=== PATIENT | male | born 1985 | race African-American/Black ===

== ENCOUNTER 2022-03-18 18:50 | Emergency (ER) | payer BC ==
[~2022-03-18] VITALS: Ht 188 cm; Wt 81.0 kg
[2022-03-18 19:43] VITALS: BP 118/88
[2022-03-18] MEDS ORDERED: FAMOTIDINE 20MG TABLET PO ONE (21:00)
[2022-03-18] MEDS ORDERED: ONDANSETRON 4MG ODT PO STA (21:00)
[2022-03-18 21:55] LABS: BASOPHILS % 0.6 % (0.0-2.0); EOSINOPHILS % 4.8 % (0.0-5.0); HEMATOCRIT. 46.3 % (42.0-52.0); HEMOGLOBIN. 15.9 g/dL (14.0-18.0); LYMPHOCYTES % 38.8 % (20.0-50.0); MEAN CORPUSCULAR HEMOGLOBIN 31.2 pg (28.0-32.0); MEAN CORPUSCULAR VOLUME 90.8 fL (80.0-94.0); MONOCYTES % 8.4 % (2.0-8.0); NEUTROPHILS % 47.4 % (40.0-76.0); PLATELET 241 x1000/uL (130-400); RED CELL DISTRIBUTION WIDTH 13.7 % (11.6-14.6)
[2022-03-18 22:14] LABS: CHLORIDE 110 mEq/L (98-107)
[2022-03-18] MEDS ORDERED: ONDANSETRON 4MG ODT PO NR (23:00)
[2022-03-18] MEDS ORDERED: FAMOTIDINE 20MG TABLET PO NR (23:00)
[2022-03-19] MEDS ORDERED: LOPE2CAP MT
== END 2022-03-19 01:47 | disposition home or self-care (01) ==
LOC: ER 18:50
DX: R10.84 Generalized abdominal pain (principal); R11.2 Nausea with vomiting, unspecified; R19.7 Diarrhea, unspecified
CPT/HCPCS: 36415; 76705; 80053; 83690; 85025; 99284; Q0162